=== PATIENT | female | born 1935 | race Caucasian/White ===

== ENCOUNTER 2023-12-19 15:00 | Emergency (ER) | payer MEDICARE, OTHER, SELFPAY ==
[2023-12-19 15:13] VITALS: BP 166/86
[2023-12-19 15:38] LABS: % Basophils 0.7 % (0-2); % Eosinophils 0.2 % (0-6); % Immature Granulocytes 0.2 % (0-0.5); % Lymphocytes 12.2 % (20.5-51.1); % Monocytes 10.6 % (1.7-9.3); % Neutrophils 76.1 % (42.2-75.2); Absolute Lymphocytes 0.7 10^3/uL (1.2-3.4); Absolute Monocytes 0.6 10^3/uL (0.1-0.6); Absolute Neutrophils 4.3 10^3/uL (1.4-6.5); Hemoglobin 14.9 g/dL (12.0-16.0); Mean Corp Hgb Conc. 34.7 g/dL (33.0-37.0); Mean Corpuscular Hgb 31.3 pg (27.0-31.0); Mean Corpuscular Volume 90.3 fL (81.0-99.0); Mean Platelet Volume 9.5 fL (7.4-10.4); Nucleated Red Blood Cells % 0 %; Platelet Count 190 10^3/uL (130-400); Red Blood Cell Count 4.76 10^6/uL (4.20-5.40); White Blood Cell Count 5.6 10^3/uL (4.8-10.8)
[2023-12-19 15:50] LABS: COVID-19 Antigen Negative (Negative)
[2023-12-19 15:52] LABS: ALT (SGPT) 30 U/L (0-35); AST (SGOT) 44 U/L (14-36); Albumin 4.4 g/dl (3.5-5.0); Alkaline Phosphatase 62 U/L (38-126); Blood Urea Nitrogen 17 mg/dl (7-17); Calcium 10.2 mg/dl (8.4-10.2); Carbon Dioxide 31 mmol/L (22-30); Chloride 97 mmol/L (98-107); Glucose 97 mg/dl (70-99); Potassium 3.8 mmol/L (3.5-5.1); Sodium 134 mmol/L (135-145); Total Bilirubin 0.6 mg/dl (0.2-1.3); Total Protein 7.4 g/dl (6.3-8.2); eGFR > 60.00
--- NOTE | 2023-12-19 17:09 | ED.GENMED ---
History of Present Illness
General
Chief Complaint: Cough
Source: patient and family (Daughter)
Exam Limitations: none
Time Seen by Provider: 12/19/23 17:09
Nursing documentation reviewed up to this point in time: agreed with
Travel History
Have you had any contact with someone who has COVID-19?: No
Do you have any symptoms of coronavirus? Fever > 100 degrees, chills, cough, shortness of breath, sore throat, loss of taste or smell, muscle aches, or headache?: No
History of Present Illness
History of Present Illness:
The patient is a pleasant 88-year-old female with a past medical history of COPD and pacemaker, who arrives with complaints of an ongoing cough productive of yellow mucus for at least 3 to 4 days. Patient also reports a temperature of 100.1 this
morning. Her daughter reports they just tested her for COVID prior to arrival and it came back negative. The patient denies chest pain and shortness of breath. She is concerned because the color of the mucus and says this is unusual for her. She
denies leg pain and leg swelling. She denies vomiting and diarrhea.
Past History
Past History
ED Past Medical History: Arrthythmia (Atrial fib), COPD, HTN and Other (Ulcerative colitis. Chronic Bronchitis.)
ED Past Surgical History: Cardiac (Pacemaker), Gynecological (Hysterectomy), Orthopedic (Knee replacement, bunion surgery, spur removal, screws in wrist) and Other (Cataracts)
Social History
Tobacco: Non-smoker
Alcohol: Occasional
Drug: None
Personal:
Living: with family
Employment: Retired
Family History
Family History: Other
Review of Systems
Review of Systems
Allergies reviewed?: Yes
All Other Systems: ROS reviewed and negative except as documented in HPI and ROS
Constitutional: Reports fatigue and chills
EENT: Reports no symptoms
Respiratory: Reports cough
Cardiac: Reports no symptoms
ABD/GI: Reports no symptoms
: Reports no symptoms
Musculoskeletal: Reports no symptoms
Skin: Reports no symptoms
Neurological: Reports no symptoms
Endocrine: Reports no symptoms
Hematologic/Lymphatic: Reports no symptoms
Psychiatric: Reports no symptoms
Phy Exam
Physical Exam
Physical Exam:
Physical Exam
General: no apparent distress, not acutely ill
Neck: supple. no meningeal signs. normal psoterior pharynx
Heart: s1/s2 regular rate and rhythm,
Lungs: no acute respiratory distress. clear bilaterally. Frequently coughing. However, no sign of dyspnea or tachypnea
Abdomen: normal bowel sounds. not tender. no CVAT
Neuro: alert and oriented. no focal neurological deficits
Skin: no rash
Psychiatric: well kept. interactive and cooperative
Extremities: no edema. no calf tenderness. negative homans. good distal pulses
Course
Orders/Labs/Results
Orders:
Orders
12/19/23 15:24
COVID-19 Antigen Urgent
Source: Nasal Swab
Complete Blood Count/With Diff Urgent
Comprehensive Metabolic Panel Urgent
Influenza A+B Rapid Molecular Urgent
MARY ALICE Source: Nasal Swab
Specimen Description:
12/19/23 17:12
Chest [CR Chest - 2 Views ] Urgent
Comment:
Reason For Exam: cough
12/19/23 17:22
Acetaminophen [Tylenol] 650 mg PO NOW STA
12/19/23 18:25
Doxycycline [Vibramycin] 100 mg PO NOW STA
Abnormal Lab Results
12/19/23
15:24
MCH 31.3 H pg
(27.0-31.0)
Absolute Lymphs (auto) 0.7 L 10^3/uL
(1.2-3.4)
Neutrophils % 76.1 H %
(42.2-75.2)
Lymphocytes % 12.2 L %
(20.5-51.1)
Monocytes % 10.6 H %
(1.7-9.3)
Sodium 134 L mmol/L
(135-145)
Chloride 97 L mmol/L
(98-107)
Carbon Dioxide 31 H mmol/L
(22-30)
AST 44 H U/L
(14-36)
12/19/23 15:24
12/19/23 15:24
Vital Signs
Initial and Last Documented VS:
Initial Vital Signs
Temp Pulse Resp BP Pulse Ox
98.0 F 89 18 166/86 60
12/19/23 15:13 12/19/23 15:13 12/19/23 15:13 12/19/23 15:13 12/19/23 15:13
Last Documented Vital Signs
Temp Pulse Resp BP Pulse Ox
99.3 F 66 14 166/86 94
12/19/23 17:30 12/19/23 18:30 12/19/23 18:17 12/19/23 15:13 12/19/23 17:30
MDM/Problems Addressed
Differential Diagnosis Includes:
Acute bronchitis, acute pneumonia, CHF
MDM/Problems Addressed:
Patient presents with acute cough productive of yellow mucus
Chronic conditions affecting care:
Given patient has a history of COPD, she is at increased risk of pneumonia
Acute Exacerbation and/or Progression of Chronic Illness:
Patient may have acute exacerbation of COPD
*Radiology
Radiology exam reviewed: preliminary read by ED provider (Read by me. No acute disease.) and radiology read reviewed
*Pulse Oximetry
Patient hypoxic: no
*Rn Cardiac Rehab Interpretation
Rate: normal
Interpretation: normal
Rhythm: sinus
*Critical Care Note
Total Time (30-74mins, 75-104mins- exclusive of procedures): Not Applicable
Data Reviewed
Review of Other/Old Records Reveals: Discharge Summary (Discharge summary reviewed from 07/2022 when patient was admitted for acute CHF and shortness of breath.)
Source: patient and family
Patient Management
Social determinants of health affecting care: Living situation
Escalation/DeEscalation of care consider admission/obs:
Patient remains well and comfortable appearing. She has no definite fever or elevated white blood cell count. She is in no respiratory distress. Patient will be treated with an antibiotic for acute bronchitis given that she is elderly, has
cardiac disease and has known COPD. She does report that her mucus is different than her typical mucus and is thick and yellow.
ED Attending Note
-
Portions of this chart may have been created with voice recognition software.� Occasional wrong word or��sound alike� substitutions may have occurred due to the inherent limitations of voice recognition software.
Discharge Plan
Departure
Patient Disposition: Home (Routine Discharge)
Date of Disposition: 12/19/23
Time of Disposition: 18:29
Patient with high blood pressure during this ER visit?: Yes
Condition: Good
Covid-19: Not Applicable
Discharge Problem:
Acute bronchitis
Instructions: Acute Bronchitis, Adult (DC), Cough, Adult (DC), BLOOD PRESSURE
Prescriptions:
New
doxycycline hyclate 100 mg capsule
100 mg PO BID Qty: 13 0RF
No Action
Glucosamine Sulf-Chondroitin 1 EACH capsule
1 cap PO BID
Centrum Silver Women 1 EACH tablet
1 ea PO DAILY
loratadine 10 MG tablet
10 mg PO DAILY PRN (Reason: 1hr prior to remicade)
ipratropium bromide 1 SPRAY spray,non-aerosol
2 spray intranasal TID
Sinus Rinse Packet
1 packet BID Qty: 0
polyethylene glycol 3350 [Miralax] 17 gram Powder In Packet
8.5 g PO DAILY
potassium chloride 10 mEq tablet extended release
10 meq PO DAILY
acetaminophen 500 mg Tablet
500 - 1,000 mg PO Q6H PRN (Reason: mild pain/fever)
acetaminophen 650 mg Tablet Extended Release
650 mg PO DAILY PRN (Reason: 1hr prior to remicade)
pantoprazole 20 mg tablet,delayed release (DR/EC)
20 mg PO HS
warfarin [Jantoven] 5 mg tablet
7.5 mg PO TUTHSA
hydralazine 50 mg tablet
50 mg PO BID
azelastine 137 mcg (0.1 %) aerosol,spray
2 spray INTRANASAL BID
carboxymethylcellulose sodium 1 % Drops, Liquid Gel
1 drp BOTH EYES 8XD
escitalopram oxalate 5 mg Tablet
5 mg PO HS
biotin 1 mg Capsule
1 mg PO DAILY
warfarin [Jantoven] 5 MG tablet
5 mg PO SUMOWEFR
Rx Instructions:
dose varies depending on INR
furosemide 40 mg Tablet
40 mg PO DAILY Qty: 30 0RF
Jardiance 10 mg Tablet
10 mg PO DAILY
Entyvio 300 mg Recon Soln
300 mg IV Q8W
Referrals:
Mariah Mejia MD [Family Provider] -
Activity Restrictions/Additional Instructions:
Please take the next dose of the antibiotic tomorrow morning. Please take 650 mg of Tylenol every 4-6 hours for any fever or pain. Please return with any lethargy or difficulty breathing.
Interventions
Interventions:
*Risk Screen - Suicide Last Done: 12/19/23 17:11
*General Assessment Last Done: 12/19/23 15:14
*Neglect/Abuse Screening Last Done: 12/19/23 17:11
ED- Fall Risk Assessment Last Done: 12/19/23 17:11
*ED COVID-19 Vaccine History Last Done: 12/19/23 15:14
*Nursing Disposition Last Done: 12/19/23 18:39
ED- Pulmonary Assessment Last Done: 12/19/23 17:31
Discharge Date and Time
Discharge Date/Time: 12/19/23 18:40
Print Language: SINHALA
[2023-12-19] MEDS: TYLENOL 650 MG PO (17:28)
[2023-12-19] MEDS: VIBRAMYCIN 100 MG PO (18:30)
== END 2023-12-19 18:40 | disposition home or self-care (01) ==
LOC: EMR 15:00
PROVIDERS: Emergency Medicine; EMERGENCY PHYSICIAN Emergency Medicine; FAMILY PHYSICIAN Family Medicine
DX: J20.9 Acute bronchitis, unspecified (principal); I48.91 Unspecified atrial fibrillation; J44.9 Chronic obstructive pulmonary disease, unspecified; I11.0 Hypertensive heart disease with heart failure; I50.9 Heart failure, unspecified; Z90.710 Acquired absence of both cervix and uterus; Z95.0 Presence of cardiac pacemaker; Z96.659 Presence of unspecified artificial knee joint
CPT/HCPCS: 99283; 71046; 80053; 85025; 87502; 87811

== ENCOUNTER → 2024-01-18 08:20 | Outpatient (REF) | payer MEDICARE, OTHER, SELFPAY ==
[2024-01-18 12:00] LABS: Hematocrit 42.1 % (37.0-47.0); Hemoglobin 14.5 g/dL (12.0-16.0); Mean Corp Hgb Conc. 34.4 g/dL (33.0-37.0); Mean Corpuscular Hgb 32.2 pg (27.0-31.0); Mean Corpuscular Volume 93.3 fL (81.0-99.0); Mean Platelet Volume 10.4 fL (7.4-10.4); Platelet Count 185 10^3/uL (130-400); Red Blood Cell Count 4.51 10^6/uL (4.20-5.40); Red Cell Dist. Width 15.1 % (11.5-14.5); White Blood Cell Count 6.7 10^3/uL (4.8-10.8)
[2024-01-18 13:05] LABS: ALT (SGPT) 24 U/L (0-35); AST (SGOT) 35 U/L (14-36); Albumin 3.8 g/dl (3.5-5.0); Alkaline Phosphatase 50 U/L (38-126); Blood Urea Nitrogen 19 mg/dl (7-17); Calcium 10.1 mg/dl (8.4-10.2); Carbon Dioxide 28 mmol/L (22-30); Chloride 102 mmol/L (98-107); Glucose 92 mg/dl (70-99); Potassium 3.6 mmol/L (3.5-5.1); Sodium 136 mmol/L (135-145); Total Bilirubin 0.6 mg/dl (0.2-1.3); Total Protein 6.5 g/dl (6.3-8.2); eGFR > 60.00
[2024-01-18 19:06] LABS: Hepatitis B Surface Antigen Negative (Negative)
[2024-01-20 19:23] LABS: Quantiferon Mitogen minus NIL >10.00 IU/mL; Quantiferon NIL 0.04 IU/mL; Quantiferon TB Gold Plus Negative (Negative)
== END ==
LOC: HWLAB 08:20
PROVIDERS: ATTENDING PHYSICIAN Internal Medicine; FAMILY PHYSICIAN Family Medicine
DX: K51.90 Ulcerative colitis, unspecified, without complications (principal)
CPT/HCPCS: 36415; 80053; 85027; 86480; 87340

== ENCOUNTER → 2024-03-11 09:54 | Outpatient (REF) | payer MEDICARE, OTHER, SELFPAY | LOC: HWRAD 09:54 | PROVIDERS: ATTENDING PHYSICIAN Family Medicine | DX: Z78.0 Asymptomatic menopausal state (principal); Z12.31 Encounter for screening mammogram for malignant neoplasm of breast | CPT/HCPCS: 77063; 77067; 77080 ==

== ENCOUNTER → 2024-06-15 09:21 | Outpatient (REF) | payer MEDICARE, OTHER, SELFPAY | LOC: HWLAB 09:21 | PROVIDERS: ATTENDING PHYSICIAN Internal Medicine; FAMILY PHYSICIAN Student in an Organized Health Care Education/Training Program | DX: Z87.19 Personal history of other diseases of the digestive system (principal); R19.7 Diarrhea, unspecified | CPT/HCPCS: 83993; 87045; 87046; 87324; 87427; 87449 ==

== ENCOUNTER → 2024-06-28 13:24 | Outpatient (REF) | payer MEDICARE, OTHER, SELFPAY | LOC: RAD 13:24 | PROVIDERS: ATTENDING PHYSICIAN Pain Medicine Interventional Pain Medicine; FAMILY PHYSICIAN Student in an Organized Health Care Education/Training Program | DX: M79.662 Pain in left lower leg (principal); M79.661 Pain in right lower leg | CPT/HCPCS: 93970 ==

== ENCOUNTER → 2024-06-29 15:34 | Outpatient (REF) | payer MEDICARE, OTHER, SELFPAY | LOC: HWRAD 15:34 | PROVIDERS: ATTENDING PHYSICIAN Pain Medicine Interventional Pain Medicine; FAMILY PHYSICIAN Student in an Organized Health Care Education/Training Program | DX: M54.16 Radiculopathy, lumbar region (principal) | CPT/HCPCS: 72131 ==

== ENCOUNTER → 2024-09-09 10:02 | Outpatient (REF) | payer MEDICARE, OTHER, SELFPAY ==
[2024-09-09 11:17] LABS: Hematocrit 41.2 % (37.0-47.0); Hemoglobin 13.3 g/dL (12.0-16.0); Mean Corp Hgb Conc. 32.3 g/dL (33.0-37.0); Mean Corpuscular Hgb 31.1 pg (27.0-31.0); Mean Corpuscular Volume 96.3 fL (81.0-99.0); Mean Platelet Volume 9.4 fL (7.4-10.4); Platelet Count 200 10^3/uL (130-400); Red Blood Cell Count 4.28 10^6/uL (4.20-5.40); Red Cell Dist. Width 14.1 % (11.5-14.5); White Blood Cell Count 6.1 10^3/uL (4.8-10.8)
[2024-09-09 11:41] LABS: ALT (SGPT) 38 U/L (0-35); AST (SGOT) 54 U/L (14-36); Albumin 4.1 g/dl (3.5-5.0); Alkaline Phosphatase 48 U/L (38-126); Blood Urea Nitrogen 21 mg/dl (7-17); Calcium 9.9 mg/dl (8.4-10.2); Carbon Dioxide 30 mmol/L (22-30); Chloride 101 mmol/L (98-107); Glucose 99 mg/dl (70-99); Potassium 4.1 mmol/L (3.5-5.1); Sodium 139 mmol/L (135-145); Total Bilirubin 0.6 mg/dl (0.2-1.3); Total Protein 6.8 g/dl (6.3-8.2); eGFR > 60.00
[2024-09-09 11:45] LABS: C-Reactive Protein < 5.00 mg/L (0.0-10.00)
[2024-09-09 12:02] LABS: Vitamin D, 25-OH*** 55.1 ng/mL (30-80)
[2024-09-12 04:46] LABS: Calprotectin, Fecal 48 ug/g (<=49)
== END ==
LOC: HWLAB 10:02
PROVIDERS: ATTENDING PHYSICIAN Internal Medicine; FAMILY PHYSICIAN Student in an Organized Health Care Education/Training Program
DX: K51.90 Ulcerative colitis, unspecified, without complications (principal)
CPT/HCPCS: 36415; 80053; 82306; 83993; 85027; 86140

== ENCOUNTER 2024-10-07 11:48 | Emergency (ER) | payer OTHER, SELFPAY ==
[2024-10-07 11:51] VITALS: BP 175/89
[2024-10-07] MEDS: DILAUDID 0.25 MG IV ×2 (14:09→15:10)
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
[2024-10-07 14:16] VITALS: BP 156/68
[2024-10-07 14:25] LABS: % Basophils 0.5 % (0-2); % Eosinophils 0.3 % (0-6); % Immature Granulocytes 0.3 % (0-0.5); % Lymphocytes 10.1 % (20.5-51.1); % Monocytes 4.8 % (1.7-9.3); Absolute Basophils 0.1 10^3/uL (0-0.2); Absolute Lymphocytes 1.1 10^3/uL (1.2-3.4); Absolute Monocytes 0.5 10^3/uL (0.1-0.6); Absolute Neutrophils 8.7 10^3/uL (1.4-6.5); Hematocrit 39.6 % (37.0-47.0); Hemoglobin 13.3 g/dL (12.0-16.0); Mean Corp Hgb Conc. 33.6 g/dL (33.0-37.0); Mean Corpuscular Hgb 31.2 pg (27.0-31.0); Nucleated Red Blood Cells % 0 %; Platelet Count 190 10^3/uL (130-400); Red Blood Cell Count 4.26 10^6/uL (4.20-5.40); Red Cell Dist. Width 13.7 % (11.5-14.5); White Blood Cell Count 10.4 10^3/uL (4.8-10.8)
[2024-10-07 14:39] LABS: ALT (SGPT) 26 U/L (0-35); AST (SGOT) 40 U/L (14-36); Albumin 4.4 g/dl (3.5-5.0); Alkaline Phosphatase 64 U/L (38-126); Blood Urea Nitrogen 22 mg/dl (7-17); Calcium 10.6 mg/dl (8.4-10.2); Carbon Dioxide 31 mmol/L (22-30); Chloride 97 mmol/L (98-107); Glucose 125 mg/dl (70-99); INR 2.11; PT 23.7 Sec (11.4-14.6); Potassium 3.9 mmol/L (3.5-5.1); Sodium 137 mmol/L (135-145); Total Bilirubin 0.7 mg/dl (0.2-1.3); Total Protein 7.3 g/dl (6.3-8.2); eGFR > 60.00
[2024-10-07 15:00] VITALS: BP 166/79
[2024-10-07] MEDS: ROXICODONE 5 MG PO (16:50)
[2024-10-07] MEDS: TYLENOL 650 MG PO (16:50)
== END 2024-10-07 19:07 | disposition home or self-care (01) ==
LOC: EMR 11:48
PROVIDERS: Physician Assistant; EMERGENCY PHYSICIAN Emergency Medicine; FAMILY PHYSICIAN Student in an Organized Health Care Education/Training Program
DX: S52.501A Unspecified fracture of the lower end of right radius, initial encounter for closed fracture (principal); S52.601A Unspecified fracture of lower end of right ulna, initial encounter for closed fracture; S62.304A Unspecified fracture of fourth metacarpal bone, right hand, initial encounter for closed fracture; S62.306A Unspecified fracture of fifth metacarpal bone, right hand, initial encounter for closed fracture; S60.221A Contusion of right hand, initial encounter; S93.402A Sprain of unspecified ligament of left ankle, initial encounter; V43.52XA Car driver injured in collision with other type car in traffic accident, initial encounter; I10 Essential (primary) hypertension; E78.5 Hyperlipidemia, unspecified; I48.91 Unspecified atrial fibrillation; Z79.01 Long term (current) use of anticoagulants; Z95.0 Presence of cardiac pacemaker
CPT/HCPCS: 99285; 96374; 96376; 29125; 70450; 71260; 72125; 73030; 73090; 73130; 73552; 73610; 74177; 80053; 85025; 85610; 85730; 93005; Q9967

== ENCOUNTER 2024-10-12 06:05 | Day surgery (SDC) | payer MEDICARE, OTHER, SELFPAY ==
[2024-10-12] VITALS (16 sets, daily range): BP systolic 141–181; BP diastolic 59–110
[2024-10-12] MEDS: TYLENOL 1000 MG PO (11:51)
[2024-10-12 12:16] LABS: INR 1.45; PT 18.2 Sec (11.4-14.6)
[2024-10-12] MEDS: SUBLIMAZE 25 MCG IV ×2 (16:05→16:23)
[2024-10-12] MEDS: TORADOL 15 MG IV (16:58)
--- NOTE | 2024-10-12 17:00 | SUR.PHASEI ---
Dr. Lopez notified about patients pain level. At bedside. Went over allergies, and will order 15mg of Toradol and .25mg of Dilaudid. Will continue to monitor
[2024-10-12] MEDS: DILAUDID 0.25 MG IV ×2 (17:02→17:50)
--- NOTE | 2024-10-12 17:46 | SUR.PHASEI ---
Dr. Lopez back to check on pt. and will give another dose of 0.25 Dilaudid and move pt to phase 2.
[2024-10-12] MEDS: TYLENOL 650 MG PO (18:06)
[2024-10-12] MEDS: ROXICODONE 5 MG PO (18:35)
--- NOTE | 2024-10-12 19:40 | PTCARENOTE ---
Assisted pt to dress, applied sling. Pt tolerated well. Pt reported pain down to a 5. Escorted to rest room. Pt's other daughter, Bebe Plaza here for pt.
== END 2024-10-12 19:38 | disposition home or self-care (01) ==
LOC: SDS 06:05
PROVIDERS: Student in an Organized Health Care Education/Training Program; ATTENDING PHYSICIAN Orthopaedic Surgery
PROC: 0PSH04Z Reposition Right Radius with Internal Fixation Device, Open Approach (ICD-10-PCS; 2024-10-12)
PROC: 0PSK04Z Reposition Right Ulna with Internal Fixation Device, Open Approach (ICD-10-PCS; 2024-10-12)
DX: S52.391A Other fracture of shaft of radius, right arm, initial encounter for closed fracture (principal); S52.291A Other fracture of shaft of right ulna, initial encounter for closed fracture; V89.2XXA Person injured in unspecified motor-vehicle accident, traffic, initial encounter; Z88.6 Allergy status to analgesic agent; Z88.8 Allergy status to other drugs, medicaments and biological substances; Z88.0 Allergy status to penicillin; Z88.1 Allergy status to other antibiotic agents; Z88.7 Allergy status to serum and vaccine; Z88.5 Allergy status to narcotic agent; Z88.2 Allergy status to sulfonamides
CPT/HCPCS: 25575; 73090; 76000; 85610

== ENCOUNTER → 2024-10-18 13:08 | Outpatient (REF) | payer OTHER, SELFPAY | LOC: RAD 13:08 | PROVIDERS: ATTENDING PHYSICIAN Student in an Organized Health Care Education/Training Program | DX: M79.89 Other specified soft tissue disorders (principal); M25.572 Pain in left ankle and joints of left foot; K59.00 Constipation, unspecified | CPT/HCPCS: 36415; 73590; 73610; 74018; 93971 ==

== ENCOUNTER → 2024-12-15 08:29 | Outpatient (REF) | payer MEDICARE, OTHER, SELFPAY ==
[2024-12-15 10:36] LABS: ALT (SGPT) 27 U/L (0-35); AST (SGOT) 41 U/L (14-36); Albumin 3.7 g/dl (3.5-5.0); Alkaline Phosphatase 52 U/L (38-126); Direct Bilirubin 0.1 mg/dl (0.0-0.4); Total Bilirubin 0.7 mg/dl (0.2-1.3); Total Protein 6.4 g/dl (6.3-8.2)
== END ==
LOC: HWLAB 08:29
PROVIDERS: ATTENDING PHYSICIAN Internal Medicine; FAMILY PHYSICIAN Student in an Organized Health Care Education/Training Program
DX: K76.9 Liver disease, unspecified (principal)
CPT/HCPCS: 36415; 80076

== ENCOUNTER → 2025-04-11 10:11 | Outpatient (REF) | payer MEDICARE, OTHER, SELFPAY | LOC: HWWDC 10:11 | PROVIDERS: ATTENDING PHYSICIAN Student in an Organized Health Care Education/Training Program | DX: Z12.31 Encounter for screening mammogram for malignant neoplasm of breast (principal) | CPT/HCPCS: 77063; 77067 ==

== ENCOUNTER → 2025-05-30 09:36 | Outpatient (REF) | payer MEDICARE, OTHER, SELFPAY | LOC: WDC 09:36 | PROVIDERS: ATTENDING PHYSICIAN Student in an Organized Health Care Education/Training Program | DX: R92.30 Dense breasts, unspecified (principal); Z12.39 Encounter for other screening for malignant neoplasm of breast | CPT/HCPCS: 76641 ==

== ENCOUNTER → 2025-07-11 07:04 | Outpatient (REF) | payer MEDICARE, OTHER, SELFPAY ==
[2025-07-11 09:28] LABS: Hematocrit 38.5 % (37.0-47.0); Hemoglobin 12.8 g/dL (12.0-16.0); Mean Corp Hgb Conc. 33.2 g/dL (33.0-37.0); Mean Corpuscular Volume 94.1 fL (81.0-99.0); Nucleated Red Blood Cells % 0 %; Platelet Count 205 10^3/uL (130-400); Red Cell Dist. Width 14.3 % (11.5-14.5)
[2025-07-11 09:35] LABS: ALT (SGPT) 24 U/L (0-35); AST (SGOT) 34 U/L (14-36); Albumin 4.0 g/dl (3.5-5.0); Alkaline Phosphatase 46 U/L (38-126); Blood Urea Nitrogen 20 mg/dl (7-17); Calcium 9.6 mg/dl (8.4-10.2); Carbon Dioxide 29 mmol/L (22-30); Chloride 105 mmol/L (98-107); Glucose 82 mg/dl (70-99); Potassium 4.3 mmol/L (3.5-5.1); Sodium 140 mmol/L (135-145); Total Protein 6.7 g/dl (6.3-8.2); eGFR > 60.00
[2025-07-11 09:52] LABS: Vitamin D, 25-OH*** 54.4 ng/mL (30-80)
[2025-07-11 13:57] LABS: Hepatitis B Surface Antigen Negative (Negative)
== END ==
LOC: HWLAB 07:04
PROVIDERS: ATTENDING PHYSICIAN Internal Medicine; FAMILY PHYSICIAN Student in an Organized Health Care Education/Training Program
DX: K51.90 Ulcerative colitis, unspecified, without complications (principal); M85.80 Other specified disorders of bone density and structure, unspecified site
CPT/HCPCS: 36415; 80053; 82306; 85025; 86480; 87340